=== PATIENT | female | born 1950 | race Caucasian/White ===

== ENCOUNTER → 2017-06-13 | Outpatient (CLI) | payer MEDICARE, OTHER ==
[~2017-06-13] MED LIST: ACYC800 PO; ALBU90OI INH; ALLO100 PO; AMOX250 PO; ASPI81CH; ATOR40TA; Artificial Tear15 M6; CETI5 PO; CHOL10002 PO; CLOB.05TC; ERGO50000 PO; FLUC200 PO; FURO20; GABA100 PO; INS70/30PN SQ; INSUASPI SQ; LIDO700A20 TOP; LISI20 PO; Lantus100 UNIT/1; Lantus100 UNIT/1 SQ; MELO7.5 PO; METF500 PO; METPRE4DP PO; Novolog100 UNIT/1; ONDA4ODT; ONDA4ODT PO; PERIDEX15 ML PO; PRAV20 PO; PROM25; ROPI2 PO; SERT50 PO; TACROLIMUS 0.1%; TRAM50 PO
== END | disposition home or self-care (01) ==
LOC: LAB EV 14:48
DX: M54.2 Cervicalgia (principal)
CPT/HCPCS: 85651

== ENCOUNTER 2017-10-02 10:16 | Emergency (ER) | payer MEDICARE, OTHER ==
[~2017-10-02] VITALS: Ht 162.6 cm; Wt 89.8 kg
[~2017-10-02 10:16] MED LIST changes: -LIDO700A20 TOP; -METPRE4DP PO
[2017-10-02] MEDS ORDERED: METPRE4DP PO (11:05)
[2017-10-02] MEDS ORDERED: LIDO700A20 TOP (11:05)
[2017-10-02] MEDS ORDERED: TRAM50 PO (11:05)
== END 2017-10-02 11:14 | disposition home or self-care (01) ==
LOC: ER 10:16
DX: M54.41 Lumbago with sciatica, right side (principal); Z88.2 Allergy status to sulfonamides; Z88.1 Allergy status to other antibiotic agents; Z79.899 Other long term (current) drug therapy; Z79.4 Long term (current) use of insulin; Z79.82 Long term (current) use of aspirin
CPT/HCPCS: 99283

== ENCOUNTER 2018-05-13 15:06 | Inpatient (IN) | payer MEDICARE, OTHER ==
[~2018-05-13] VITALS: Ht 167.6 cm; Wt 82.0 kg
[~2018-05-13 15:06] MED LIST changes: +LIDO700A20 TOP; +METPRE4DP PO
[2018-05-13 15:20] LABS: Calcium, Ionized (POC) 1.05 mmol/L (1.10-1.46); Chloride (POC) 107 mmol/L (98-108); Creatinine (POC) 2.3 mg/dL (0.6-1.0); Glucose (ISTAT POC) 505 mg/dL (70-99); Hemoglobin (POC) 15.3 g/dL (12.0-16.0); Sodium (POC) 140 mmol/L (135-148); Total CO2 (POC) 18 mmol/L (21-32)
[2018-05-13 15:27] LABS: BASOPHILS ABSOLUTE AUTO 0.02 K/mm3 (0.00-0.23); BASOPHILS PERCENT AUTO 0 % (0-2); EOSINOPHILS PERCENT AUTO 0 % (0-6); Hematocrit 44.6 % (33.0-51.0); Hemoglobin 13.9 g/dL (11.5-16.0); IMMATURE GRAN ABSOLUTE AUTO 0.03 K/mm3 (0.00-0.10); IMMATURE GRAN PERCENT AUTO 0 % (0-1); LYMPHOCYTES ABSOLUTE AUTO 0.95 K/mm3 (0.84-5.20); LYMPHOCYTES PERCENT AUTO 7 % (21-46); MONOCYTES ABSOLUTE AUTO 0.64 K/mm3 (0.16-1.47); MONOCYTES PERCENT AUTO 5 % (4-13); Mean Corpuscular HGB 26.7 pg (26.0-34.0); Mean Corpuscular HGB Conc 31.2 g/dL (31.5-36.5); Mean Corpuscular Volume 86 fL (80-100); NEUTROPHILS ABSOLUTE AUTO 11.26 K/mm3 (1.96-9.15); NEUTROPHILS PERCENT AUTO 87 % (41-73); Platelet Count 204 K/mm3 (150-400); RDW Coefficient Variation 14.9 % (11.7-14.2); RDW Standard Deviation 45.5 fL (35.1-46.3)
[2018-05-13 15:46] LABS: International Normalized Ratio 1.19; Prothrombin Time Results 12.4 Sec (9.7-11.5)
[2018-05-13 15:49] LABS: Ethanol (Alcohol), Blood, Med <3 mg/dL
[2018-05-13 15:59] LABS: Alanine Aminotransfer (ALT/SGP 38 U/L (12-78); Albumin, Blood 2.7 g/dL (3.4-5.0); Albumin/Globulin Ratio 0.7 (0.8-1.8); Alk Phos 135 U/L (50-136); Anion Gap 14 mmol/L (6-16); Aspartate Aminotrans (AST/SGOT 74 U/L (12-37); Bilirubin, Total 0.9 mg/dL (0.1-1.0); Blood Urea Nitrogen 51 mg/dL (8-24); Bun/Creatinine Ratio 21.3 (12.0-20.0); CO2, Blood 18 mmol/L (21-32); Calcium, Blood 8.4 mg/dL (8.5-10.1); Chloride, Blood 109 mmol/L (98-108); Creatinine, Blood 2.39 mg/dL (0.40-1.00); Globulin, Blood 3.8 g/dL (2.2-4.0); Glomerular Filtration Rate 21 (60-); Glucose, Blood 491 mg/dL (70-99); Potassium, Blood 4.8 mmol/L (3.5-5.5); Sodium, Blood 141 mmol/L (136-145); Total Protein, Blood 6.5 g/dL (6.4-8.2)
[2018-05-13 16:04] LABS: Troponin I 0.782 ng/mL (0.000-0.040)
[2018-05-13] MEDS ORDERED: Loratadine10 MG PO (16:22)
[2018-05-13] MEDS ORDERED: TRAZ50 PO (16:23)
[2018-05-13 16:24] LABS: Source, Urine Catheter
[2018-05-13] MEDS ORDERED: CALCIUM CARBONATE PO (16:24)
[2018-05-13] MEDS ORDERED: MELA3 PO (16:25)
[2018-05-13] MEDS ORDERED: ESCI10 PO (16:26)
[2018-05-13] MEDS ORDERED: GUAIFENESIN PO (16:27)
[2018-05-13 16:29] LABS: Appearance, Urine Clear (Clear); Bilirubin, Urine Neg (Neg); Blood, Urine 5+ (Neg); Color, Urine Yellow (P-Yellow); Glucose Qualitative, Urine 4+ (Neg); Ketones, Urine 2+ (Neg); Leukocyte Esterase, Urine Neg (Neg); Nitrite, Urine Neg (Neg); Protein, Urine 4+ (Neg); Urobilinogen, Urine NORM (Normal)
[2018-05-13] MEDS ORDERED: NITR.4SL SL (16:31)
[2018-05-13] MEDS ORDERED: Amlodipine Bes2.5 MG PO (16:31)
[2018-05-13] MEDS ORDERED: Isosorbide Mono30 MG PO (16:31)
[2018-05-13 16:47] LABS: U Amphetamine Screen Not Detected; U Barbituate Screen Not Detected; U Benzodiazapine Screen Not Detected; U Buprenorphine Screen Not Detected; U Cannabinoids Screen Not Detected; U Cocaine Screen Not Detected; U Methadone Screen Not Detected; U Methamphetamine Screen Not Detected; U Opiates Screen Not Detected; U Oxycodone Screen Not Detected; U Phencyclidine Screen Not Detected; U Propoxyphene Screen Not Detected
[2018-05-13 16:56] LABS: PCO2 Arterial 27.7 mmHg (35-45); PO2 Arterial 109 mmHg (80-100); pH Blood Arterial 7.36 (7.35-7.45)
[2018-05-13 17:06] LABS: Amorphous Mod (0-Heavy); Bacteria Mod /hpf; Squamous Epithelial Cells Few /hpf (Few)
[2018-05-13 19:15] LABS: Calcium, Ionized (POC) 1.15 mmol/L (1.10-1.46); Chloride (POC) 104 mmol/L (98-108); Creatinine (POC) 1.5 mg/dL (0.6-1.0); Glucose (ISTAT POC) >700 mg/dL (70-99); Potassium (POC) 5.4 mmol/L (3.5-5.5); Sodium (POC) 136 mmol/L (135-148); Total CO2 (POC) 12 mmol/L (21-32)
--- NOTE | 2018-05-13 22:00 | NUR ---
ASSUMED PT CARE AT 2135 PT ADMITTED TO ICU S/P RIGHT SIDED CVA. PT WAS INTUBATED IN ED D/T UNABLE TO PROTECT AIRWAY. ARRIVED ON UNIT WITH VENT SETTINGS: AC 16; TV 350; FIO2 25%; PEEP 5 WITH OXYGEN SATURATIONS 100%. PT IS UNRESPONSIVE TO VERBAL STIMULI; HOWEVER, WITHDRAWALS FROM PAINFUL STIMULI. COUGH AND GAG REFLEX INTACT; HOWEVER, PUPILS ARE PINPOINT AT 2MM AND ARE UNRESPONSIVE TO LIGHT. NO PURPOSEFUL MOVEMENT NOTED TOWARD VITAL TUBES/LINES; THEREFORE, PT HAS NOT BEEN RESTRAINED. LUNG SOUNDS CLEAR T/O WITH RESP RATE 16-20. NSR WITH BRADYCARDIA NOTED AT TIMES, WELL PAC'S. OG TUBE IS CLAMPED. PHILIPPE CATH IS PATENT AND DRAINING CLEAR, YELLOW URINE TO GRAVITY. SKIN OVERALL IS CDI; HOWEVER, PT DOES HAVE REDDENED AREAS TO RIGHT HIP/BUTTOCK; RIGHT LATERAL BACK SIDE; AND BRUISING NOTED TO TOP OF RIGHT FOOT. PT IS ON COMFORT MEASURES AWAITING PALLIATIVE AND SOCIAL SERVICE CONSULTS TO DISCUSS WITH FAMILY PLAN OF ACTION PER REPORTING OFF RN.
--- NOTE | 2018-05-14 06:08 | NUR ---
END OF SHIFT SUMMARY PT HAS REMAINED COMFORTABLE T/O SHIFT. REPOSITIONED Q2HRS FOR COMFORT. PROPOFOL INFUSING AT 20MCG/KG. 18G PERIPHERAL IV'S TO BILATERAL ANTECUBITAL'S HAVE REMAINED PATENT AND INTACT. PT CONTINUES TO BE UNRESPONSIVE, BUT WILL WITHDRAWAL FROM PAINFUL STIMULI. PUPILS REMAIN NONRESPONSIVE TO LIGHT AT 2MM. LUNG SOUNDS ARE CLEAR T/O WITH RESP RATE 16-20. NSR WITH HR 60'S WITH RUNS OF BRADYCARDIA AND OCCASIONAL PAC'S. PHILIPPE CATH IS PATENT AND DRAINING TO GRAVITY; CLEAR, YELLOW URINE. EDEMA NOTED TO LEFT ARM/HAND; ELEVATED ON PILLOWS. PT APPEARS COMFORTABLE AT THIS TIME.
--- NOTE | 2018-05-14 06:46 | NUR ---
TURNED OFF PROPOFOL AT 0625 TO ASSESS PT'S MENTATION; PT REMAINS UNRESPONSIVE. WITHDRAWALS FROM PAIN. DOES NOT OPEN EYES OR FOLLOW ANY COMMANDS. PROPOFOL REMAINS OFF AT THIS TIME FOR DAY SHIFT RN TO OBTAIN THEIR OWN ASSESSSMENT
--- NOTE | 2018-05-14 08:54 | NUR ---
CARE ASSUMED CARE AND REPORT ASSUMED FROM JYOTI IJMENEZ. PT INTUBATED WITHOUT SEDATION. PT ONLY RESPONDS TO PAINFUL STIMULI. PUPILS UNREACTIVE AND FIXED. R PUPIL LARGER THAN LEFT. NO S/S PAIN; PT APPEARS COMFORTABLE AT THIS TIME. NSR, HR 70S AND BP STABLE. AFEBRILE. IV SALINE LOCKED AT THIS TIME. OGT SECURED. VENT AC 16, 350, PEEP 5, FIO2 25%. UNRESTRAINED DUE TO NO MOVEMENT. PHILIPPE CATH SECURED AND PATENT. DNR BAND SECURED. WILL CONTINUE TO MONITOR.
--- NOTE | 2018-05-14 09:30 | NUR ---
INITIAL PAL CARE VISIT: Spoke with Dr Rush re: current status and concerns and spoke to RN prior to visit. Pt is 67 yr old who was found down in her apartment at [facility] yesterday. EMS transported and she was intubated. She has a large CVA she is not likely to recover from per . Ella is unresponsive on the vent and sedated. Koko is known to me personally for the past 8 yrs. She has no familily living in the area. Her closest friend this month. 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 There is no signature of acceptance from the POA on the document. I called the # listed for POA and reached the [employer] office. The POA is no longer a produce team member there and Ella has not remained active in the [employer] for several years. THere is no other # listed for POA for HC. I faxed the [facility] medical records to see if there was additional infor or more to an AD that would indicate what Ella's wishes would be re: life support under these circumstances. I called [facility] listed on face sheet, brother Balaji Marshall [phone]. [place] he is the youngest sibling. We had a 20 minute conversation. Balaji has not seen Ella in decades but he is the only family member who has regular phone contact with her and had spoken to her in the past month or two. [place] explained [place] law re: [employer]/designation of medical decision makers in Ella's absence of ability to speak for herself. Balaji took my number and stated he would discuss with his sisters and call us back if they are able to give us any guidance regarding whether pt would want to continue on ventilator with minimal hope of improvement. I thanked him for his time and considerations of the issues Ella is facing. PC to continue to follow for s/s management, comfort care and support to pt/family. I encouraged Balaji to call or have sisters call our office with any questions also. Update given to
--- NOTE | 2018-05-14 11:43 | NUR ---
PAL CARE NOTE: Only family contact known of - Brother, Balaji [phone] Pt's brother, Balaji Marshall, called me to tell me he is on his way to be here in [place] to see pt and is currently in [place], [place]. He hopes to be here by Tuesday. I cautioned him that Ella may before then even if ventilated. He verbalized understanding. He asked that I go to Ella's room and tell her he is on his way. He knows she is sedated and unconscious. I told him I would do that. Pt's RN updated on above. Balaji states he is still waiting to hear from one sister in regards to a consensus among siblings about a decision regarding continued ventilator support.
--- NOTE | 2018-05-14 12:41 | NUR ---
REASSESSMENT PT REMAINS INTUBATED ON VENT AC. SEDATION OFF ENTIRE SHIFT. REMAINS UNRESPONSIVE WITH PUPIL LARGER ON R SIDE. PT TURNED AND HOB ELEVATED. MODERATE AMOUNTS OF THICK, WHITE SECRETIONS FROM ETT. OGT ATTACHED TO LIWS. REGULAR INSULIN LOW SLIDING SCALE STARTED.
--- NOTE | 2018-05-14 16:35 | NUR ---
REASSESSMENT NO CHANGES SINCE PRIOR ASSESSMENT. REMAINS ON VENTILATOR WITH NO SEDATION. UNRESPONSIVE. VSS. WILL CONTINUE TO MONITOR.
--- NOTE | 2018-05-14 17:24 | NUR ---
SHIFT SUMMARY NO SIGNIFICANT EVENTS DURING SHIFT. OFF SEDATION ENTIRE SHIFT. REMAINED ONLY RESPONSIVE TO PAINFUL STIMULI. NO S/S PAIN. VSS ENTIRE SHIFT. CURRENTLY NSR, HR 80S. OGT ATTACHED TO LIWS. VENT AC ENTIRE SHIFT. PT TURNED Q2H AND HOB ELEVATED. OUT OF RESTRAINTS. WILL GIVE BEDSIDE, HANDOFF REPORT TO MISTY JIMENEZ.
--- NOTE | 2018-05-14 21:37 | NUR ---
ASSUMED PT CARE AT 1915 PT RESTING COMFORTABLY IN BED. REMAINS ON COMFORT CARE UNTIL FAMILY ARRIVES FROM [place]. PT IS BEING REPOSITIONED Q2HRS FOR COMFORT. VENT SETTINGS REMAINS AT AC 16; TV 350; FIO2 25%; PEEP 5 WITH OXYGEN SATURATIONS >95%. NO SIGNS OF PAIN OR DISCOMFORT AT THIS TIME.
[2018-05-15 05:23] LABS: PO2 Arterial 86.1 mmHg (80-100); pH Blood Arterial 7.48 (7.35-7.45)
--- NOTE | 2018-05-15 05:41 | NUR ---
END OF SHIFT SUMMARY PT HAS REMAINED DNR WITH COMFORT MEASURES PROVIDED. REPOSITIONED Q2HRS WITH BED BATH COMPLETED. TMAX OF 98.1. PT REMAINS UNRESPONSIVE; WITHDRAWALS FROM PAINFUL STIMULI. GAG AND COUGH REFLEX REMAIN INTACT. RIGHT PUPIL IS DILATED AND FIXED AT 4MM; LEFT PUPIL IS AT 2MM AND NON-RESPONSIVE TO LIGHT. VENT SETTINGS REMAIN AT AC 16; TV 350; FIO2 25%; PEEP 5 WITH RESP RATE 16-25; OXYGEN SATURATIONS >95%. PT HAS BEEN NSR TO SINUS TACH T/O SHIFT WITH PAC'S AND PVC'S NOTED. AT 0530 PT HAD A RUN OF NON-SUSTAINED SVT WITH A HR 178; BP 117/63. PT APPEARS COMFORTABLE AT THIS TIME. NO NONVERBAL S/SX OF PAIN.
--- NOTE | 2018-05-15 07:30 | NUR ---
ASSUMED CARE ASSUMED CARE OF PATIENT. PATIENT CURRENTLY INTUBATED, NO SEDATION AND NO RESTRAINTS. PATIENT WITHDRAWS FEET TO STIMULATION BUT NO RESPONSE TO UPPER EXTREMETIES. PUPILS IRREGULAR AND NON REACTIVE. DOES NOT FOLLOW ANY COMMANDS. EYES CLOSED. FAMILY OUT OF STATE AND ON THEIR WAY HERE. PATIENT CURRENTLY A DNR. FAMILY AWARE OF PATIENTS SITUATION. PLAN TO CONTINUE TO MONITER NEURO STATUS. CONTINUE TO TURN PATIENT FREQUENLY. PROVIDE ORAL CARE AND SUCTIONING NEEDED. WILL PROVIDE SKIN/WOUND CARE NEEDED. PATIENT HAS BLISTERED AREA OVER R HIP. WILL NOTIFY PHYSICANS OF ANY CHANGES.
--- NOTE | 2018-05-15 15:59 | NUR ---
SUMMARY PALIATIVE CARE SPOKE WITH SON. PLANS TO BE HERE TUESDAY EVENING IF ROAD CONDITIONS MAINTAIN. PATIENT CONTINUES TO BE UNRESPONSIVE. NO SEDATION INFUSING. PUPILS CONTINUE TO BE IRREGULAR. CONTINUE TO TURN PATIENT FREQUENTLY. BLISTER AREA OVER R HIP DRAINING EARLIER. DRESSING APPLIED TO AREA. NO CHANGES IN NEURO STATUS. PATIENT CONTINUES TO BE ON THE VENT. CONTINUES TO BE UNRESTRAINED. NO PURPOSEFUL MOVEMENT SEEN OF EXTREMETIES. WILL GIVE REPORT TO ONCOMING SHIFT WHEN AVAILABLE.
--- NOTE | 2018-05-15 17:13 | NUR ---
Review of pt with intesivist and nuraing. pt family lalo called this am leaving in morning to drive from [place]. Review of pt not on hydaration or meds. Lalo relays the goal is to get ther aand then withdraw care they want to be present when she passes. advised may not be possible but with physician and staff will care for her and be there until they arrive.
--- NOTE | 2018-05-15 19:25 | NUR ---
ASSUMED CARE PT INTUBATED W/O SEDATION. VENT SETTINGS AC16/350/25%/5. PT DOES NOT RESPOND TO VERBAL STIM, NO GAG, NO CORNEAL REFLEX, DOES EXTEND ARMS WITH PAIN AND EXTENDS TOES WITH PLANTAR STIM. R>L PUPIL AT 4/2. PER AM RN, PT'S BROTHER ENROUTE FROM [place] AND WILL BE HERE TUESDAY PM. NO OTHER FAMILY PRESENT. LR AT 50ML/HR AND FC IN PLACE.
[2018-05-16 06:12] LABS: BASOPHILS ABSOLUTE AUTO 0.04 K/mm3 (0.00-0.23); BASOPHILS PERCENT AUTO 0 % (0-2); EOSINOPHILS ABSOLUTE AUTO 0.01 K/mm3 (0.00-0.68); EOSINOPHILS PERCENT AUTO 0 % (0-6); Hematocrit 45.9 % (33.0-51.0); Hemoglobin 14.1 g/dL (11.5-16.0); IMMATURE GRAN ABSOLUTE AUTO 0.06 K/mm3 (0.00-0.10); IMMATURE GRAN PERCENT AUTO 0 % (0-1); LYMPHOCYTES ABSOLUTE AUTO 1.51 K/mm3 (0.84-5.20); LYMPHOCYTES PERCENT AUTO 9 % (21-46); MONOCYTES PERCENT AUTO 5 % (4-13); Mean Corpuscular HGB Conc 30.7 g/dL (31.5-36.5); Mean Corpuscular Volume 88 fL (80-100); Mean Platelet Volume 12.8 fL (9.1-12.4); NEUTROPHILS ABSOLUTE AUTO 14.97 K/mm3 (1.96-9.15); NEUTROPHILS PERCENT AUTO 86 % (41-73); Platelet Count 114 K/mm3 (150-400); RDW Coefficient Variation 15.1 % (11.7-14.2); RDW Standard Deviation 48.6 fL (35.1-46.3); Red Blood Cell Count 5.23 M/mm3 (3.80-5.20); White Blood Cell Count 17.39 K/mm3 (4.00-11.30)
--- NOTE | 2018-05-16 06:19 | NUR ---
SHIFT SUMMARY NO ACUTE EVENTS OVERNIGHT. PT REMAINS INTUBATED, NO CHANGE TO PREVIOUSLY NOTED VENT SETTINGS. NO SEDATION IN PLACE. NO GAG, SWALLOW OR CORNEAL REFLEX NOTED. PT EXTENDS ARMS AND FEET WITH NOXIOUS STIM. LR AT 50ML/HR, OG TO LIS WITH SCANT AMOUNT OF BILE OUTPUT. VSS, EKG SHOWS SR WITH PAC'S AND PVC'S. LAB HAD DIFFICULTY OBTAINING SPECIMENS THIS AM AND RESULTS ARE STILL PENDING.
[2018-05-16 06:27] LABS: Albumin, Blood 1.9 g/dL (3.4-5.0); Anion Gap 13 mmol/L (6-16); Blood Urea Nitrogen 64 mg/dL (8-24); Bun/Creatinine Ratio 24.5 (12.0-20.0); CO2, Blood 19 mmol/L (21-32); Calcium, Blood 7.9 mg/dL (8.5-10.1); Chloride, Blood 115 mmol/L (98-108); Creatinine, Blood 2.61 mg/dL (0.40-1.00); Glomerular Filtration Rate 19 (60-); Glucose, Blood 200 mg/dL (70-99); Potassium, Blood 4.5 mmol/L (3.5-5.5); Sodium, Blood 147 mmol/L (136-145)
--- NOTE | 2018-05-16 07:14 | NUR ---
ASSUMED CARE ASSUMED CARE OF PATIENT. PATIENT CONTINUES TO BE INTUBATED. DOES NOT FOLLOW COMMANDS. PUPILS CONTINUE TO BE IRREGULAR. PLAN TO CONTINUE TO MONITOR NEURO STATUS FOR CHANGES. WILL CONTINUE TO MONITOR RESPITORY STATUS AND TITRATE FIO2 NEEDED. WILL PROVIDE ORAL CARE AND SUCTIONING. WILL CONTINUE TO TURN PATIENT FREQUENTLY AND PROVIDE SKIN/WOUND CARE. WILL NOTIFY PHYSICIANS OF ANY CHANGES.
--- NOTE | 2018-05-16 13:03 | NUR ---
No change since my last assessment. Pt remains intubated and unresponsive after a large right sided stroke. Brother Balaji left [place] on Tuesday and expected to be here Tuesday. I will telephone him in am on cell to find out his ETA and make sure he knows how to get to the hospital. He has never been to [place] before. I stayed at pt's bedside for a few minutes and talked to her, although, it is unlikely she is hearing or understanding under the circumstances. [facility] care will remain available for EOL care decision making once Balaji arrives.
--- NOTE | 2018-05-16 13:52 | NUR ---
PATIENT CONTINUES TO BE INTUBATED. PATIENT CONTINUES TO MAKE NO PURPOSEFUL MOVEMENTS. CONTINUE TO TURN PATIENT FREQUENTLY. PATIENT HAS HAD 2 SOFT STOOLS TODAY. DRESSING OVER R HIP AREA CHANGED.
--- NOTE | 2018-05-16 17:56 | NUR ---
SUMMARY PATIENT CONTINUES TO BE INTUBATED. CONTINUES TO HAVE NO PURPOSEFUL MOVEMENT. NO SEDATION AT THIS TIME. TRIPLE FLEXION NOTED OF LOWER EXTREMETIES WITH STIMULATION. SUCKING AT TIMES WHILE DOING ORAL CARE. NO CHANGES IN PUPILS. FAMILY CALLED FOR UPDATE AND CONTINUE TO HOPE TO BE HERE TOMORROW EVENING. WILL GIVE REPORT TO ONCOMING SHIFT WHEN AVAILABLE. DRESSING INTACT OVER R HIP WOUND.
--- NOTE | 2018-05-16 19:15 | NUR ---
ASSUMED CARE PT REMAINS INTUBATED W/ SETTINGS AT AC16/350/25%/5, NO SEDATION IN PLACE. PT PUPILS UNEQUAL AND NOT RESPONSIVE WITH R>L. ALL EXTREMITIES EXTEND WITH ANY STIMULI, NO SWALLOW, GAG OR CORNEAL REFLEX NOTED. PER AM RN, BROTHER CALLED AND IS STILL ENROUTE FROM [place] AND IS EXPECTED TO ARRIVE TOMORROW EVENING. LR AT 50ML/HR, VSS, ECG SHOWS SR W/ PAC'S.
--- NOTE | 2018-05-17 06:20 | NUR ---
SHIFT SUMMARY NO ACUTE EVENTS OVERNIGHT, NO CHANGE TO PREVIOUSLY NOTED VENT SETTINGS. PT REMAINS UNRESPONSIVE AND HAS BUE EXTENSION WITH NOXIOUS STIM, BLE'S SHOW PROGRESSIVE EXTENSION OF FOOT, ANKLE THEN HIP. PT HAS NO GAG, RARE COUGH, & NO CORNEAL REFLEX. LR AT 50ML/HR, BP OCCASIONALLY ELEVATED, ECG SHOWS SR WITH PAC'S AND O2 SATS >90%.
--- NOTE | 2018-05-17 07:35 | NUR ---
ASSUMED CARE ASSUMED CARE OF PATIENT. PATIENT CONTINUES TO BE INTUBATED AND UNRESPONSIVE. NO PURPOSEFUL MOVEMENT SEEN. PLAN TO CONTINUE TO MONITOR FOR CHANGES IN NEURO STATUS. WILL CONTINUE TO TURN PATIENT FREQUENTLY. PROVIDE SKIN/WOUND CARE NEEDED. WILL CONTINUE TO PROVIDE ORAL CARE AND SUCTIONING PER PROTOCOL AND NEEDED. FAMILY TO ARRIVE LATER TODAY TO EVALUATE PATIENT AND MAKE FURTHER DECISIONS. WILL NOTIFY PHYSICANS OF ANY CHANGES.
--- NOTE | 2018-05-17 19:15 | NUR ---
SUMMARY PATIENT CONTINUES TO BE INTUBATED. NO CHANGES IN NEURO STATUS. FAMILY PLAN TO ARRIVE TONIGHT AND MEET WITH DOCTORS IN THE AM. BED BATH GIVEN THIS EVENING. REPORT GIVEN TO GUADALUPE JIMENEZ. BEDSIDE REPORT DONE.
--- NOTE | 2018-05-17 20:00 | NUR ---
ASSUMED CARE OF PT AT 1900. REPORT RECEIVED AT BEDSIDE. PT PRESENTS IN BED, VENTED - SETTINGS CHECKED AND VERIFIED. PT NOT ON SEDATION AT THIS TIME NOR ARE THERE ANY SOFT WRIST RESTRAINTS IN USE. PT UNRESPONSIVE. DOES NOT MAKE ANY PURPOSEFUL MOVEMENTS. DOES PULL FOOT BACK TO ANY TACTILE STIMULI TO LATERAL ASPECT OF LOWER LEG. THIS IS CONSISTANT WITH BOTH LEFT AND RIGHT LOWER EXTREMITY. WHEN APPLY TACTILE STIMULI TO MEDIAL ASPECT OF LOWER EXTREMITIES, THIS WILL NOT ELICIT RESPONSE. DOES NOT FOLLOW ANY COMMANDS. WILL REVIEW CHART AND PLAN OF CARE FOR THIS PT.
--- NOTE | 2018-05-18 | NUR ---
PT TOLERATING Q 2 HOUR TURNS IN BED. AGAIN, REMAINS UNRESPONSIVE. PUPILS SLUGGISH TO UNRESPONSIVE TO LIGHT STIMULI. SEE SHIFT ASSESSMENT FOR DETAILS. VSS.
[2018-05-18 05:45] LABS: BASOPHILS ABSOLUTE AUTO 0.03 K/mm3 (0.00-0.23); BASOPHILS PERCENT AUTO 0 % (0-2); EOSINOPHILS ABSOLUTE AUTO 0.34 K/mm3 (0.00-0.68); EOSINOPHILS PERCENT AUTO 2 % (0-6); Hematocrit 40.8 % (33.0-51.0); Hemoglobin 12.4 g/dL (11.5-16.0); IMMATURE GRAN ABSOLUTE AUTO 0.13 K/mm3 (0.00-0.10); IMMATURE GRAN PERCENT AUTO 1 % (0-1); LYMPHOCYTES PERCENT AUTO 7 % (21-46); MONOCYTES PERCENT AUTO 5 % (4-13); Mean Corpuscular HGB 27.1 pg (26.0-34.0); Mean Corpuscular HGB Conc 30.4 g/dL (31.5-36.5); Mean Corpuscular Volume 89 fL (80-100); Mean Platelet Volume 12.2 fL (9.1-12.4); NEUTROPHILS ABSOLUTE AUTO 12.52 K/mm3 (1.96-9.15); NEUTROPHILS PERCENT AUTO 84 % (41-73); Platelet Count 149 K/mm3 (150-400); RDW Coefficient Variation 15.9 % (11.7-14.2); Red Blood Cell Count 4.57 M/mm3 (3.80-5.20); White Blood Cell Count 14.92 K/mm3 (4.00-11.30)
--- NOTE | 2018-05-18 06:04 | NUR ---
PT CONTINUES TO BE UNRESPONSIVE. NO CHANGE NOTED TO PREVIOUS ASSESSMENTS BY THIS RN. PER REPORT, PT'S FAMILY IS TO ARRIVE THIS DAY TO DISCUSS PLAN OF CARE FOR PT. WILL CONTINUE TO MONITOR PT, AND WILL REPORT OFF TO ONCOMING RN.
[2018-05-18 06:59] LABS: Albumin, Blood 1.6 g/dL (3.4-5.0); Anion Gap 11 mmol/L (6-16); Blood Urea Nitrogen 60 mg/dL (8-24); Bun/Creatinine Ratio 30.6 (12.0-20.0); CO2, Blood 20 mmol/L (21-32); Chloride, Blood 119 mmol/L (98-108); Creatinine, Blood 1.96 mg/dL (0.40-1.00); Glomerular Filtration Rate 27 (60-); Glucose, Blood 197 mg/dL (70-99); Potassium, Blood 4.4 mmol/L (3.5-5.5); Sodium, Blood 150 mmol/L (136-145)
--- NOTE | 2018-05-18 07:21 | NUR ---
RECEIVED REPORT FROM TONY BUTCHER, ASSUMED CARE OF PATIENT. PT IS INTUBATED, VENT SETTINGS AC: 16/350/5/25%. LR @ 50 ML/HR. PUPILS ARE FIXED AND UNEVEN. LEFT PUPIL, 3, RIGHT PUPIL 4. WILL CONTINUE TO MONITOR AND AWAIT FAMILY ARRIVAL.
--- NOTE | 2018-05-18 09:00 | NUR ---
FAMILY ARRIVED TO UNIT, AT PT BEDSIDE. WILL INITIATE CARE STAFF TO COME SPEAK WITH FAMILY MEMBERS.
--- NOTE | 2018-05-18 10:10 | NUR ---
DR. MAYER IN TO SEE PATIENT, OKAY TO INTIATE COMFORT CARE AND WITHDRAWAL OF CARE WHEN FAMILY IS READY.
--- NOTE | 2018-05-18 12:02 | NUR ---
EXTUBATION PT EXTUBATED AT 1200 TO ROOM AIR. SPO2 99% UPON EXTUBATION. PT MEDICATED WITH ATIVAN AND ROXANOL FOR COMFORT. IV FLUIDS DISCONTINUED. FAMILY MEMBERS AT BEDSIDE.
--- NOTE | 2018-05-18 12:17 | NUR ---
I entered patient's room and found patient intubated and unresponsive. I Met with Patient's brother, Balaji and his Padmini and we discussed the removal of life support, Balaji's emotional struggle to be placed in the position to make the decision and his frustrations regarding paient's sudden medical condition. I conducted a life review, explored mandaen belies of patient and family, provided pastoral support and prayer. I talked through Balaji's issues and normalized his experience. I stayed with the family through the process until the extubation was complete and family was bedside. Balaji and Padmini thanked me for my time and care.
--- NOTE | 2018-05-18 13:27 | NUR ---
PT RR 36, ADMINISTERED MORPHINE 20 MG ORAL SOLUTION. PULLED BACK BLANKET AND PLACED COOL CLOTH ON PT FOREHEAD FOR COMFORT.
--- NOTE | 2018-05-18 14:29 | NUR ---
Received call from Pt's nurse with a plan for terminal withdrawel of life support. Arrived at Pt's room and Pt's brother Balaji is talking with nurse about prognosis and plan of care. Balaji appears frustrated with conversation. Nurses offered Balaji to be present during the extubation process and he denies need. Met with Balaji and his Padmini in the ICU waiting room. Learning Administrator Puneet present during visit. Engaged in therapeutic conversation about comfort care and education provided on process. Listened as Balaji expressed frustration of losing another family member. He report losing several of his family members over the past 9 years. Offered emotional support and validated his frustrations. After extubation completed family members, Learning Administrator, and this RN arrived back to Pt's room. Educated family on talking with Pt and offering loving present. Family report no other concerns at this time. Instructed Balaji to contact palliative care for any questions or concerns. Will remain available.
--- NOTE | 2018-05-18 14:46 | NUR ---
PT WARM TO TOUCH, INCREASED WORK OF BREATHING. GAVE MEDICATIONS PER EMAR APPLIED COOL CLOTH TO FOREHEAD.
--- NOTE | 2018-05-18 16:20 | NUR ---
I enetered patient's room to find patient struggling to breath and family present. I provided companionship and emotional support to family. No further needs were present. I remain available to family.
--- NOTE | 2018-05-18 18:04 | NUR ---
SHIFT SUMMARY: PT BROTHER AND [id number] ARRIVED FROM [place] AND [facility], PROCEEDING WITH COMFORT CARE MEASURES. PT EXTUBATED AROUND 1200 AND IS RESTING COMFORTABLLY. PT HAS BEEN AGONAL BREATHING SINCE 1400. CONTINUING TO KEEP MEDICATED PER EMAR ORDERS. STARTED ATROPINE DROPS AND APPLIED PATCH TO HELP CONTROL SECRETIONS. SUCTIONING PRN AND KEEPING COOL CLOTH ON FOREHEAD FOR COMFORT. PT APPEARS COMFORTABLE AT THIS TIME, WILL CONTINUE TO MONITOR AND GIVE REPORT TO NOC RN.
--- NOTE | 2018-05-18 18:36 | NUR ---
TIME OF : 1834
--- NOTE | 2018-05-18 18:40 | NUR ---
CALLED DR. MAYER AND DR. LOMAS TO MAKE AWARE OF TOD.
== END 2018-05-18 18:35 | DRG 64 ==
LOC: ER 15:06 → ICUW 19:47 → ICUE 19:47
PROVIDERS: Emergency Medicine; Internal Medicine; Internal Medicine Critical Care Medicine; ADMIT Internal Medicine
PROC: 0BH18EZ Insertion of Endotracheal Airway into Trachea, Via Natural or Artificial Opening Endoscopic (ICD-10-PCS; principal; 2018-05-13)
PROC: 5A1955Z Respiratory Ventilation, Greater than 96 Consecutive Hours (ICD-10-PCS; 2018-05-13)
DX: I63.22 Cerebral infarction due to unspecified occlusion or stenosis of basilar artery (principal); R40.20 Unspecified coma; J96.90 Respiratory failure, unspecified, unspecified whether with hypoxia or hypercapnia; E87.2 Acidosis; N18.4 Chronic kidney disease, stage 4 (severe); E87.3 Alkalosis; Z95.1 Presence of aortocoronary bypass graft; I65.21 Occlusion and stenosis of right carotid artery; E11.40 Type 2 diabetes mellitus with diabetic neuropathy, unspecified; F32.9 Major depressive disorder, single episode, unspecified; Z79.4 Long term (current) use of insulin; M19.90 Unspecified osteoarthritis, unspecified site; E78.5 Hyperlipidemia, unspecified; Z51.5 Encounter for palliative care; I48.91 Unspecified atrial fibrillation; Z66 Do not resuscitate; E11.22 Type 2 diabetes mellitus with diabetic chronic kidney disease; I12.9 Hypertensive chronic kidney disease with stage 1 through stage 4 chronic kidney disease, or unspecified chronic kidney disease; R40.2431 Glasgow coma scale score 3-8, in the field [EMT or ambulance]
CPT/HCPCS: 31500; 31720; 36415; 36600; 51702; 70450; 70496; 71045; 72125; 80047; 80053; 80069; 81001; 82140; 82803; 82947; 84484; 85014; 85025; 85610; 85730; 87086; 93005; 93010; 94002; 94003; 94761; 99291-25; 99292; G0480; J0330; J1815; J2060; J7030; J7120; Q9967